=== PATIENT | male | born 2000 | race Caucasian/White ===

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

== ENCOUNTER 2022-09-18 09:50 | Emergency (ER) | payer SELFPAY ==
[2022-09-18 10:03] VITALS: BP 113/69; PULSE 80; RESP 16; TEMP 36.6; O2SAT 100; BMI 20.7
--- NOTE | 2022-09-18 10:25 | W.ED.SEIZURE ---
HPI - Seizure General: Chief Complaint: Seizure Stated Complaint: Passed out, light headed Time Seen by Provider: 09/18/22 10:05 Source: patient and family Mode of arrival: ambulatory History of Present Illness: HPI Narrative: 21-year-old male presents emergency room complains of an episode of loss of consciousness. He can remember he was running towards a camper he got in the camper and somehow fell he left his cell phone at the opposite end of the camera. Then got out of the camper and tried returning to the house he could not find his phone so he used an iPad to call someone for help. Family members that live nearby came and helped him. He had no loss of consciousness no loss of bowel or bladder control. He is not particularly postictal by family report or at the time that we seen the patient. He has had 2 previous episodes like this about 6 to 7 years ago while he was exerting himself he had an evaluation and no significant finding was made. He is not on any current medications. He has no known history of seizure disorder. He is awake and alert and oriented and in normal sinus rhythm with stable vital signs been seen in the exam room initially. He denies chest or abdominal pain no recent illness. He did think he fell and hit his right lower back at the thoracolumbar junction level laterally and also hit the right side of his head. He is not on any anticoagulants is not on any prescription medications. Associated symptoms: Deny chest pain, chills, fever(s) or malaise Review of Systems Const: Denies: fever(s), chills, body aches, change in appetite, fatigue or malaise ENMT: Denies: throat pain, ear or mastoid pain, nasal discharge or nasal congestion Card: Denies: chest pain, edema, dyspnea on exertion or orthopnea Resp: Denies: dyspnea, productive cough or non-productive cough GI: Denies: abdominal pain, nausea, vomiting, hematemesis, coffee ground emesis, diarrhea, constipation, bloating, hematochezia or melena : Denies: flank pain, dysuria, urinary frequency or urinary urgency Skin/Breast: Denies: rash or pruritus PFS ED PFSH: Medical History Close exposure to 2019 novel coronavirus Flu-like symptoms Physical Exam Const: COMMON NORMALS: no acute distress GENERAL APPEARANCE: cooperative and comfortable ORIENTATION/CONSCIOUSNESS: Yes awake, Yes oriented to person, Yes oriented to place and Yes oriented to time HENMT: COMMON NORMALS: normocephalic, atraumatic and hearing grossly normal bilaterally HEAD & SCALP: normocephalic and atraumatic Resp: COMMON NORMALS: normal respiratory effort, No retractions, No use of accessory muscles and clear to auscultation bilaterally AUSCULTATION: clear to auscultation bilaterally Cardio: COMMON NORMALS: regular rate, regular rhythm and No murmurs present (Cardio) RATE: regular rate RHYTHM: regular rhythm GI: COMMON NORMALS: Soft to palpation and No hepatosplenomegaly present AUSCULTATION: Yes normoactive bowel sounds PALPATION: Yes Soft to palpation, No Tenderness to palpation present (GI), No Guarding due to palpation present (GI) and Yes No hepatosplenomegaly present Extremity: COMMON NORMALS: normal to inspection, capillary refill normal, no clubbing, cyanosis or edema, no calf tenderness and no pedal edema Neuro: SENSORIUM/ORIENTATION: Yes oriented to person, Yes oriented to place and Yes oriented to time Skin: COMMON NORMALS: no rashes or lesions noted GENERAL SKIN EXAM: no rashes or lesions noted Course Vital Signs: Vital signs: Vital Signs Temperature 97.9 F 09/18/22 10:03 Pulse Rate 71 09/18/22 11:33 Respiratory Rate 18 09/18/22 10:32 Blood Pressure 122/70 09/18/22 11:33 Pulse Oximetry 99 09/18/22 11:33 Oxygen Delivery Me thod Room Air 09/18/22 10:32 MDM - Seizure MDM Narrative Medical decision making narrative: Patient reports complete loss of memory for a period of time however during that time he was performing several higher level functions. I believe he most likely had some sort of fugue state. His CT of his head is negative there is no bleed no mass no sign of infection. Remainder of his labs are unremarkable. Has had previous episodes like this before we will set him up for an outpatient EEG to further evaluate offered referral to our neurology office he preferred to self refer through his primary care doctor at neurology office in [place]. Return if he has further problems. Lab Data Attestation: I reviewed the patient's lab results. 09/18/22 11:05 09/18/22 11:05 Labs: Radiology Impressions Head CT 09/18/22 10:32 IMPRESSION: No acute intracranial abnormality. Laboratory Results WBC 11.3 10^3/uL (4.5-13.0) 09/18/22 11:05 RBC 5.21 10^6/uL (4.1-5.3) 09/18/22 11:05 Hgb 15.4 g/dL (11.7-16.6) 09/18/22 11:05 Hct 45.5 % (42.0-52.0) 09/18/22 11:05 MCV 87.3 fl (80-94) 09/18/22 11:05 MCH 29.6 pg (28.0-34.0) 09/18/22 11:05 MCHC 33.8 g/dL (30.0-36.0) 09/18/22 11:05 RDW 12.6 % (12.1-15.1) 09/18/22 11:05 Plt Count 299 10^3/cmm (130-400) 09/18/22 11:05 MPV 9.1 fL (7.4-10.4) 09/18/22 11:05 Neut % (Auto) 82.1 % 09/18/22 11:05 Lymph % (Auto) 11.6 % 09/18/22 11:05 Floyd % (Auto) 5.2 % 09/18/22 11:05 Eos % (Auto) 0.4 % 09/18/22 11:05 Baso % (Auto) 0.3 % 09/18/22 11:05 Neut # (Auto) 9.31 10^3/uL (1.8-8.0) H 09/18/22 11:05 Lymph # (Auto) 1.3 10^3/uL (1.5-6.5) L 09/18/22 11:05 Floyd # (Auto) 0.6 10^3/uL (0.2-0.9) 09/18/22 11:05 Eos # (Auto) 0.0 10^3/uL (0.0-0.8) 09/18/22 11:05 Baso # (Auto) 0.0 10^3/uL (0.0-0.1) 09/18/22 11:05 Nucleated RBC % (auto) 0 % 09/18/22 11:05 Nucleated RBCs # 0.0 /100WBC 09/18/22 11:05 Sodium 138 mmol/L (136-145) 09/18/22 11:05 Potassium 4.3 mmol/L (3.5-5.1) 09/18/22 11:05 Chloride 101 mmol/L (98-107) 09/18/22 11:05 Carbon Dioxide 25 mmol/L (22-29) 09/18/22 11:05 Anion Gap 16.3 (5-19) 09/18/22 11:05 BUN 14 mg/dL (6-20) 09/18/22 11:05 Creatinine 0.8 mg/dL (0.7-1.2) 09/18/22 11:05 GFR Calculation 123.2 mL/min (90-130) 09/18/22 11:05 Glucose 103 mg/dL (65-115) 09/18/22 11:05 Calculated Osmolality 287 mOsm/kg (285-295) 09/18/22 11:05 Calcium 9.3 mg/dL (8.5-10.5) 09/18/22 11:05 Total Bilirubin 0.6 mg/dL (0.15-1.2) 09/18/22 11:05 AST 24 U/L (0-40) 09/18/22 11:05 ALT 17 U/L (0-41) 09/18/22 11:05 Alkaline Phosphatase 78 U/L (40-130) 09/18/22 11:05 Creatine Kinase 271 U/L (39-308) 09/18/22 11:05 CK-MB (CK-2) 2.2 ng/mL (0-10.4) 09/18/22 11:05 CK-MB (CK-2) Rel Index % (0.0-5.3) 09/18/22 11:05 Total Protein 8.1 g/dL (6.6-8.7) 09/18/22 11:05 Albumin 4.8 g/dL (3.5-5.2) 09/18/22 11:05 Globulin 3.3 g/dL (1.3-4.6) 09/18/22 11:05 Urine Opiates Screen Negative ng/mL (Negative) 09/18/22 11:42 Ur Barbiturates Screen Negative ng/mL (Negative) 09/18/22 11:42 Ur Phencyclidine Scrn Negative ng/mL (Negative) 09/18/22 11:42 Ur Amphetamines Screen Negative ng/mL (Negative) 09/18/22 11:42 U Benzodiazepines Scrn Negative ng/mL (Negative) 09/18/22 11:42 Urine Cocaine Screen Negative ng/mL (Negative) 09/18/22 11:42 U Marijuana (THC) Screen Positive ng/mL (Negative) H 09/18/22 11:42 Discharge Plan Discharge Patient Disposition: Home Clinical Impression: Fugue Condition: Stable Prescriptions: No Action No Known Home Medications Discharge Orders: Discharge ED (Routine); Ordered 09/18/22 Ordered By: Richard Wagner Discharge Diet: Usual diet Discharge Activity: Increase activity as tolerated Patient Instructions: Opioid Safety, Pain Management Activity Restrictions/Additional Instructions: You were seen today for a few guaiac state versus possible seizure. At this point there is no emergent condition that we would recommend admission to the hospital for. Do recommend further outpatient work-up including an EEG and neurology consultation both of which case management will arrange for. If you have recurrent problems return to the emergency room. Avoid use of heavy machinery or driving until the work-up is complete Coding Level of Care Code ED Self Propelled Mining Machine Operator for Lynn Wu
[2022-09-18 10:32] VITALS: BP 131/93; PULSE 82; RESP 18; O2SAT 97
--- NOTE | 2022-09-18 10:32 | CTR_ITS ---
PROCEDURE INFORMATION: Exam: CT Head Without Contrast Exam date and time: 09/18/2022 10:42 AM Age: 21 years old Clinical indication: Syncope and collapse; Additional info: Loc/closed head injury TECHNIQUE: Imaging protocol: Computed tomography of the head without contrast. Radiation optimization: All CT scans at this facility use at least one of these dose optimization techniques: automated exposure control; mA and/or kV adjustment per patient size (includes targeted exams where dose is matched to clinical indication); or iterative reconstruction. REPORTING DATA: Count of CT and Cardiac NM exams in prior 12 months: This patient has received 0 known CTs and 0 known cardiac nuclear medicine studies in the 12 months prior to the current study. COMPARISON: CT head wo con* [id number] 03/19/2016 3:15 PM RADIATION DOSE METRICS: Total DLP (mGy-cm): 1018.8 FINDINGS: Brain: No acute hemorrhage identified. No large territorial areas of hypoattenuation concerning for ischemic infarct identified. No intracranial mass effect. Cerebral ventricles: The ventricles are within normal limits. Paranasal sinuses: The visualized sinuses are unremarkable. Mastoid air cells: The visualized mastoid air cells are well aerated. Bones/joints: The osseous structures are intact. Soft tissues: Unremarkable. CT/CT head wo con* [id number] IMPRESSION: No acute intracranial abnormality.
--- NOTE | 2022-09-18 10:38 | ECG_ITS ---
[facility] Test Date: 2022-09-18 Pat Name: Carlos Barbosa Department: Room: Gender: Male College Associate: : 2000 Requested By: Richard Beyer Order Number: [id number] Dariusz MD: Jose Leung M.D. Measurements Intervals [place] Rate: 73 P: 66 PA: 144 QRS: 81 QRSD: 94 T: 62 QT: 375 QTc: 414 Interpretive Statements SINUS RHYTHM Compared to ECG 03/19/2016 14:50:25 No significant changes Electronically Signed On 09-18-2022 16:39:45 CDT by Jose Leung M.D. [email or web address] [email or web address] [email or web address].[employer]/[id number]
[2022-09-18 11:27] LABS: Basophils % 0.3 %; Eosinophils % 0.4 %; Hematocrit 45.5 % (42.0-52.0); Hemoglobin 15.4 g/dL (11.7-16.6); Lymphocytes # 1.3 10^3/uL (1.5-6.5); Lymphocytes % 11.6 %; Mean Corpuscular HGB Conc 33.8 g/dL (30.0-36.0); Mean Corpuscular Hemoglobin 29.6 pg (28.0-34.0); Mean Corpuscular Volume 87.3 fl (80-94); Mean Platelet Volume 9.1 fL (7.4-10.4); Monocytes # 0.6 10^3/uL (0.2-0.9); Monocytes % 5.2 %; Neutrophils # 9.31 10^3/uL (1.8-8.0); Neutrophils % 82.1 %; Nucleated Red Blood Cells % 0 %; Platelet Count 299 10^3/cmm (130-400); Red Blood Count 5.21 10^6/uL (4.1-5.3); Red Cell Distribution Width 12.6 % (12.1-15.1); White Blood Count 11.3 10^3/uL (4.5-13.0)
[2022-09-18 11:33] VITALS: BP 122/70; PULSE 71; O2SAT 99
[2022-09-18 11:37] LABS: Alanine Aminotransferase 17 U/L (0-41); Albumin Level 4.8 g/dL (3.5-5.2); Alkaline Phosphatase 78 U/L (40-130); Anion Gap 16.3 (5-19); Aspartate Amino Transferase 24 U/L (0-40); Blood Urea Nitrogen 14 mg/dL (6-20); Calcium 9.3 mg/dL (8.5-10.5); Carbon Dioxide 25 mmol/L (22-29); Chloride 101 mmol/L (98-107); Creatine Phosphokinase 271 U/L (39-308); Globulin 3.3 g/dL (1.3-4.6); Glomerular Filtration Rate 123.2 mL/min (90-130); Glucose 103 mg/dL (65-115); Osmolality Calculated 287 mOsm/kg (285-295); Potassium 4.3 mmol/L (3.5-5.1); Sodium 138 mmol/L (136-145); Total Bilirubin 0.6 mg/dL (0.15-1.2); Total Protein 8.1 g/dL (6.6-8.7)
[2022-09-18 11:57] LABS: Amphetamines Screen Urine Negative (Negative); Barbiturates Screen Urine Negative (Negative); Benzodiazepines Screen Urine Negative (Negative); Cocaine Screen Urine Negative (Negative); Opiate Screen Urine Negative (Negative); PCP Screen Urine Negative (Negative); THC Screen Urine Positive (Negative)
[2022-09-18 12:04] LABS: CKMB 2.2 ng/mL (0-10.4)
[2022-09-18 12:37] VITALS: BP 131/74; PULSE 71; O2SAT 99
--- NOTE | 2022-09-21 14:25 | DCPLANNER ---
Addendum entered by Bharati Sánchez 09/28/22 11:53: client business manager received the following message from neurology regarding follow up appointment: Pt has got one set up in [place] Original Note: client business manager had message to schedule an outpatient EEG for patient. client business manager faxed signed order to neurology, who will call patient with appointment information.
--- NOTE | 2022-09-22 13:04 | DCPLANNER ---
distributor sales manager called patient due to no primary care physician - no answer at this time.
== END 2022-09-18 12:38 | disposition home or self-care (01) ==
PROVIDERS: Emergency Provider Family Medicine
DX: R68.89 Other general symptoms and signs (principal)
CPT/HCPCS: 36415; 70450; 80053; 80306; 82550; 82553; 85025; 93005; 99285

== ENCOUNTER 2024-04-14 16:07 | Emergency (ER) | payer OTHER, SELFPAY ==
[2024-04-14 16:22] VITALS: BP 112/60; PULSE 71; RESP 18; TEMP 36.9; O2SAT 98; BMI 20.7
--- NOTE | 2024-04-14 16:36 | XRR_ITS ---
PROCEDURE INFORMATION: Exam: XR Left Femur Exam date and time: 04/14/2024 4:42 PM Age: 23 years old Clinical indication: Injury or trauma; Other: Tree fell on leg; Blunt trauma; Thigh or upper leg; Left TECHNIQUE: Imaging protocol: Radiologic exam of the left femur. Views: 2 views. COMPARISON: CR XR lumbar spine min 4V [id number] 04/04/2024 5:06 PM FINDINGS: Bones/joints: Unremarkable. No acute fracture. Soft tissues: Unremarkable. XR/XR femur LT min 2V* [id number] IMPRESSION: No acute findings.
--- NOTE | 2024-04-14 16:36 | XRR_ITS ---
PROCEDURE INFORMATION: Exam: XR Left Wrist Exam date and time: 04/14/2024 4:42 PM Age: 23 years old Clinical indication: Injury or trauma; Other: Tree fell on leg; Blunt trauma (contusions or hematomas); Wrist; Left TECHNIQUE: Imaging protocol: Radiologic exam of the left wrist. Views: 3 or more views. COMPARISON: No relevant prior studies available. FINDINGS: Bones/joints: Osseous structures are intact. Negative for fracture. Joint spaces are preserved. Soft tissues: Normal. XR/XR wrist LT min 3V* [id number] IMPRESSION: No acute findings.
--- NOTE | 2024-04-14 16:49 | W.ED.TRAUMA ---
HPI - Trauma General: Chief Complaint: Trauma Stated Complaint: tree fell on left side arm and wrist Time Seen by Provider: 04/14/24 16:34 History of Present Illness: 23-year-old man who is healthy who was cutting down a tree and fell on him injuring his left wrist and hand. He has abrasion on the hand and some bruising on the thenar side of his palmar wrist. Abrasion dorsally. Also some pain in his left thigh from the top of his femur down to about his knee. He has been able to walk on this. No other injuries. No head injury. No loss of consciousness. He is up-to-date on his tetanus shot from a laceration he had a year or so ago. Related Data Home Medications Medication Instructions Recorded Confirmed No Known Home Medications 02/17/20 02/17/20 Allergies Allergy/AdvReac Type Severity Reaction Status Date / Time No Known Allergies Allergy Verified 04/14/24 16:27 Review of Systems Narrative: Constitutional symptoms: Negative except as documented in HPI. Skin symptoms: Negative except as documented in HPI. Eye symptoms: Negative except as documented in HPI. ENMT symptoms: Negative except as documented in HPI. Respiratory symptoms: Negative except as documented in HPI. Cardiovascular symptoms: Negative except as documented in HPI. Gastrointestinal symptoms: Negative except as documented in HPI. Genitourinary symptoms: Negative except as documented in HPI. Musculoskeletal symptoms: Negative except as documented in HPI. Neurologic symptoms: Negative except as documented in HPI. Psychiatric symptoms: Negative except as documented in HPI. Endocrine symptoms: Negative except as documented in HPI. [facility] ED PFSH: Medical History Close exposure to 2019 novel coronavirus Flu-like symptoms Physical Exam Narrative: EXAM NARRATIVE: General: Alert, no acute distress. Skin: Warm, dry. Head: Normocephalic, atraumatic. Neck: Supple, trachea midline. Eye: Extraocular movements are intact. Ears, nose, mouth and throat: mucosa moist. Cardiovascular: Regular, Normal peripheral perfusion. Respiratory: Lungs are clear to auscultation, respirations are non-labored, breath sounds are equal, Symmetrical chest wall expansion. Gastrointestinal: Soft, Nontender, Non distended Musculoskeletal: Normal ROM, no deformity. abrasion on the hand and some bruising on the thenar side of his palmar wrist. Abrasion dorsally. Also some pain in his left thigh from the top of his femur down to about his knee Neurological: Alert and oriented, No focal neurological deficit observed. Psychiatric: Cooperative, appropriate mood & affect. Course Vital Signs: Vital signs: Vital Signs Temperature 98.4 F 04/14/24 16:22 Pulse Rate 71 04/14/24 16:22 Respiratory Rate 18 04/14/24 16:22 Blood Pressure 112/60 04/14/24 16:22 Pulse Oximetry 98 04/14/24 16:22 Oxygen Delivery Me thod Room Air 04/14/24 16:22 MDM - Trauma Medical Decision Making X-ray of the left wrist: No obvious acute fractures. He has broken this wrist in the past. Films were interpreted by myself the emergency room provider and pending final radiology review. X-ray of the left femur: No obvious fractures. No dislocation. Films were interpreted by myself the emergency room provider and pending final radiology review. Assessment and plan: Wrist contusion Hand abrasion Contusion of the left thigh - Discharged home - Discussed plan with patient. Answered any questions. - Evaluation and treatment of this problem were appropriate in the emergency setting. XR interpretation done by ED provider, pending radiology final review Discharge Plan Discharge Patient Disposition: Home Clinical Impression: Contusion of wrist, left, Abrasion of hand, Contusion of left thigh Condition: Stable Prescriptions: No Action No Known Home Medications Discharge Orders: Discharge ED (Routine); Ordered 04/14/24 Ordered By: Dee Smith Referrals: Leonard Leyva DO [Primary Care Provider] - Discharge Diet: Usual diet Discharge Activity: Increase activity as tolerated Patient Instructions: Opioid Safety, Pain Management Activity Restrictions/Additional Instructions: Thank you for choosing [facility] for your healthcare needs today. Please realize this is an emergency room and that we are providing you with a medical screening exam and this may not be complete and all inclusive of all the testing and or work up that you may need to determine your ailment or severity of your illness. You have been screened and evaluated and felt safe for discharge. Health conditions do change or evolve sometimes and as such it is important that you follow up with your Primary Doctor to be re checked, 3-5 days is a general good time frame for follow up. You are always welcome to return to the ED for re assessment if your symptoms are worsening or you have new concerns Coding Level of Care Code ED Founder And Chief Executive Officer for Lynn Wu
[2024-04-14 17:52] VITALS: PULSE 73; O2SAT 99
== END 2024-04-14 17:53 | disposition home or self-care (01) ==
PROVIDERS: Emergency Provider Emergency Medicine; PCP Electrodiagnostic Medicine
DX: S60.212A Contusion of left wrist, initial encounter (principal); S60.519A Abrasion of unspecified hand, initial encounter; S70.12XA Contusion of left thigh, initial encounter; W20.8XXA Other cause of strike by thrown, projected or falling object, initial encounter
CPT/HCPCS: 73110; 73552; 99284